=== PATIENT | female | born 1935 | race Caucasian/White ===

== ENCOUNTER 2016-08-27 19:36 | Emergency (ER) | payer OTHER, BC ==
[~2016-08-27] VITALS: Ht 152.4 cm; Wt 47.8 kg
[~2016-08-27 19:36] MED LIST: ALEVE220 M2 PO; ASPIRIN EC325 MG PO; ASPIRIN81 M1 PO; ATIVAN0.5 MG PO; CITRACAL D + H1 EACH PO; CRESTOR10 MG PO; IBUPROFEN800 MG PO; LISINOPRIL20 MG PO; LISINOPRIL40 MG PO; LOVENOX40 MG/0.4 SC; MAALOX MAXIMUM355 ML PO; MIRALAX17 GM PO; MIRTAZAPINE15 MG PO; NAMENDA10 MG PO; SYNTHROID88 MCG PO; TYLENOL EXTRA500 MG PO; VITAMIN D-32000 UNI2 PO; VITAMIN D-32000 UNIT PO; VYTORIN 10/41 TABLET PO; ZOLOFT25 MG PO
[2016-08-27] MEDS ORDERED: MOTRIN600 MG PO (22:18)
[2016-08-27 23:27] VITALS: BP 120/57
== END 2016-08-27 23:50 | disposition home or self-care (01) ==
LOC: EME 19:36
DX: S80.212A Abrasion, left knee, initial encounter (principal); W18.30XA Fall on same level, unspecified, initial encounter; Y92.199 Unspecified place in other specified residential institution as the place of occurrence of the external cause; G30.9 Alzheimer's disease, unspecified; F02.80 Dementia in other diseases classified elsewhere, unspecified severity, without behavioral disturbance, psychotic disturbance, mood disturbance, and anxiety; I10 Essential (primary) hypertension; E78.5 Hyperlipidemia, unspecified; E03.9 Hypothyroidism, unspecified
CPT/HCPCS: 73521; 73560; 81003; 99281; 99285

== ENCOUNTER 2017-05-19 10:55 | Emergency (ER) | payer OTHER, BC ==
[~2017-05-19] VITALS: Ht 147.3 cm; Wt 42.7 kg
[~2017-05-19 10:55] MED LIST changes: +MOTRIN600 MG PO
[2017-05-19 14:49] VITALS: BP 161/73
== END 2017-05-19 14:51 | disposition home or self-care (01) ==
LOC: EME 10:55
DX: S70.01XA Contusion of right hip, initial encounter (principal); M19.90 Unspecified osteoarthritis, unspecified site; W18.39XA Other fall on same level, initial encounter; Y92.129 Unspecified place in nursing home as the place of occurrence of the external cause; G30.9 Alzheimer's disease, unspecified; F02.80 Dementia in other diseases classified elsewhere, unspecified severity, without behavioral disturbance, psychotic disturbance, mood disturbance, and anxiety; E03.9 Hypothyroidism, unspecified; K21.9 Gastro-esophageal reflux disease without esophagitis; I10 Essential (primary) hypertension; E78.5 Hyperlipidemia, unspecified; Z96.642 Presence of left artificial hip joint; Z91.040 Latex allergy status; Z88.8 Allergy status to other drugs, medicaments and biological substances
CPT/HCPCS: 73522; 99281; 99284; G8978 GP CJ; G8979 GP CI; G8980 CJ; G8987 GO CL; G8988 GO CK; G8989 GO CL

== ENCOUNTER 2017-07-14 17:59 | Emergency (ER) | payer OTHER, BC ==
[~2017-07-14] VITALS: Ht 157.5 cm; Wt 50.0 kg
[~2017-07-14 17:59] MED LIST changes: +ASPIRIN81 M2 PO; +DULCOLAX10 MG PR; +ELIQUIS2.5 MG PO; +ENEMA133 M2 PR; +MELATONIN3 MG PO; +MILK OF MAGN PO; +SYNTHROID150 MCG PO; +TRAMADOL HCL50 MG PO; +VESICARE10 MG PO
[2017-07-14 21:48] VITALS: BP 134/65
== END 2017-07-14 21:50 | disposition home or self-care (01) ==
LOC: EME 17:59
DX: M25.551 Pain in right hip (principal); W05.0XXA Fall from non-moving wheelchair, initial encounter; Y92.129 Unspecified place in nursing home as the place of occurrence of the external cause; F02.80 Dementia in other diseases classified elsewhere, unspecified severity, without behavioral disturbance, psychotic disturbance, mood disturbance, and anxiety; G30.9 Alzheimer's disease, unspecified; Z96.641 Presence of right artificial hip joint; E78.5 Hyperlipidemia, unspecified; I10 Essential (primary) hypertension; Z79.82 Long term (current) use of aspirin; E03.9 Hypothyroidism, unspecified; F32.9 Major depressive disorder, single episode, unspecified; K21.9 Gastro-esophageal reflux disease without esophagitis; Z91.040 Latex allergy status; Z88.8 Allergy status to other drugs, medicaments and biological substances
CPT/HCPCS: 73502; 99281; 99284

== ENCOUNTER 2017-10-01 10:46 | Emergency (ER) | payer OTHER, BC ==
[~2017-10-01] VITALS: Ht 154.9 cm; Wt 42.5 kg
[2017-10-01 15:19] VITALS: BP 123/53
== END 2017-10-01 15:21 ==
LOC: EME 10:46
DX: S70.02XA Contusion of left hip, initial encounter (principal); G30.9 Alzheimer's disease, unspecified; F02.80 Dementia in other diseases classified elsewhere, unspecified severity, without behavioral disturbance, psychotic disturbance, mood disturbance, and anxiety; E78.5 Hyperlipidemia, unspecified; I10 Essential (primary) hypertension; K21.9 Gastro-esophageal reflux disease without esophagitis; E03.9 Hypothyroidism, unspecified; F32.9 Major depressive disorder, single episode, unspecified; Z79.82 Long term (current) use of aspirin; Z88.5 Allergy status to narcotic agent; Z88.1 Allergy status to other antibiotic agents; Z88.0 Allergy status to penicillin; Z88.8 Allergy status to other drugs, medicaments and biological substances
CPT/HCPCS: 73502; 99281; 99285